=== PATIENT | male | born 1970 | race Caucasian/White ===

== ENCOUNTER → 2016-12-26 20:19 | Outpatient (CLI) | payer BC ==
[2016-12-26 21:08] LABS: CHOL - HDL RATIO 5.2 ratio (2.3-4.9); LDL-HDL RATIO 3.3 ratio (1.5-3.5)
== END | disposition home or self-care (01) ==
LOC: D.LABREF 20:19
PROVIDERS: Internal Medicine Interventional Cardiology
DX: E78.5 Hyperlipidemia, unspecified (principal)

== ENCOUNTER → 2019-06-25 08:02 | Outpatient (CLI) | payer BC ==
--- NOTE | 2019-06-28 09:04 | EC ---
PATIENT:TAHMINA SOLIS DATE OF SERVICE: 06/25/19 SEX: M MEDICAL RECORD: [id number] DATE OF : 74 LOCATION:[facility] AGE OF PATIENT: 48 ADMISSION DATE: 06/25/19 REFERRING PHYSICIAN: INTERPRETING PHYSICIAN: BRANDIN SHIELDS MD ECHOCARDIOGRAM REPORT ECHO CHARGES 4 ECHO COMPLETE Date: 06/25/19 CLINICAL DIAGNOSIS: SYSTOLIC MURMUR HX TRACE MR/TR ECHOCARDIOGRAPHIC MEASUREMENTS (adult normal given) AC root (d.<3.7cm) 3.2 cm LV Septum d (<1.2 cm> 1.4 cm Valve Excursion 1.6 cm LV Septum (systole) 1.6 cm Left Atria (s.<4.0cm> 3.8 cm LVPW d(<1.2cm) 1.5 cm RV (d.<2.3cm) 3.4 cm LVPW (sytole) 2.0 cm LV diastole(<5.6CM) 4.4 cm MV E-F(>70mm/sec) cm LV systole 3.0 cm LVOT Diameter 1.9 cm MV exc.(>10mm) 1.5 cm Est.ejection fraction (50-75%) % DOPPLER: LVIT cm/sec A 61.0 cm/sec E 72.0 cm/sec LA cm/sec RVSP 25 mmHg LVOT 81 cm/sec AOP1/2T m/s Asc. Ao 113 cm/sec RVOT 81 cm/sec RA cm/sec PA 119 cm/sec AV Gradient Peak 5.13 mmHg AV Mean 2.49 mmHg AV Area 2.4 cm MV Gradient Peak 2.13 mmHg MV Mean 0.89 mmHg MV Area cm COMMENTS: Diploma Dental Assistant: 2 JENNIFER LÓPEZ Sheet Metal Operator: 3 Dr. Kirk TAPE# PACS Pericardial Effusion N DATE OF SERVICE: Adequate 2D, color flow and spectral Doppler, and M-mode. Mild LVH. LV internal dimensions are normal. Wall motion is normal. EF is greater than or equal to 55%. Aortic valve is tricuspid. No evidence of stenosis by Doppler interrogation. Left atrium is normal at 3.8 cm. Mitral valve shows no prolapse. Trace MR. Right-sided chambers are grossly normal. Trace TR. ECHOCARDIOGRAM REPORT [id number] TAHMINA SOLIS TRANSINT:[id number] Voice Confirmation ID: [id number] DOCUMENT ID: [id number] BRANDIN SHIELDS MD at 0904 CC: [id number] DICTATION DATE: 06/27/19 1018 PRESS WRITER: 06/27/19 1208 DEP CLI 06/25/19 [id number] [place] [address]
== END | disposition home or self-care (01) ==
LOC: D.HCCECHO 08:02
PROVIDERS: ATTEND Internal Medicine Interventional Cardiology
DX: R01.1 Cardiac murmur, unspecified (principal)